=== PATIENT | female | born 1990 | race African-American/Black ===

== ENCOUNTER 2025-05-19 08:54 | Emergency (ER) | payer OTHER ==
[~2025-05-19] VITALS: Ht 165.1 cm; Wt 63.0 kg
[2025-05-19 09:00] VITALS: BP 133/92; PULSE 85; RESP 16; TEMP 98.2; O2SAT 99
[2025-05-19] MEDS ORDERED: NS 1000ML 1,000 ML ONE (09:24)
[2025-05-19] MEDS ORDERED: BENTYL IM ONE (09:24)
[2025-05-19] MEDS: NS 1000ML 1,000 ML IV ONE (09:32)
[2025-05-19] MEDS: BENTYL IM STA (09:32)
[2025-05-19 09:35] LABS: BASOPHIL % 0.2 % (0.1-1.2); EOSINOPHIL # 0.1 10^3/uL (0.0-0.2); EOSINOPHIL % 1.5 % (0.0-5.0); HEMATOCRIT(ML) 36.8 % (36.0-46.0); HEMOGLOBIN 11.7 g/dL (12.0-15.0); LYMPHOCYTES # 2.11 10^3/uL1 (1.0-4.8); MEAN CORP HGB 29.3 pg (26-34); MEAN CORP HGB CONCENTRATION 31.8 g/dL (33-36.5); MONOCYTES # 0.6 10^3/uL (0.3-0.8); MONOCYTES % 7.4 % (5.0-12.0); NEUTROPHIL # 5.3 10^3/uL (1.8-7.7); NEUTROPHILS % 64.8 % (41.0-85.0); PLATELET COUNT 265 10^3/uL (150-400); WHITE BLOOD CELL 8.1 10^3/uL (4.5-11.0)
[2025-05-19 09:41] LABS: LEUKOCYTE ESTERASE ,URINE 3+ (NEGATIVE); NITRATE,URINE POSITIVE (NEGATIVE); UROBILINOGEN,URINE 0.2 E.U./dL (0.2)
[2025-05-19 09:43] LABS: APPEARANCE,URINE TURBID; UA COLOR YELLOW
[2025-05-19 09:45] LABS: +ADD MANUAL DIFF(NO CHRG) NO
[2025-05-19 09:49] LABS: UAMPH METHAMP(SCRN) NEGATIVE (co1000ng/mL); UR MDMA (ECSTASY) SCRN NEGATIVE (c/o300ng/mL); UR METHADONE SCRN NEGATIVE (c/o300ng/mL); UR PHENCYCLIDINE (PCP) SCRN NEGATIVE (c/o 25ng/mL); UR TETRAHYDROCANNABINOL SCRN NEGATIVE (c/o 50ng/mL)
[2025-05-19 09:52] LABS: CARBON DIOXIDE 28.7 mmol/L (20.0-32); POTASSIUM 3.5 mmol/L (3.6-5.2); UR OPIATE SCRN PRESUMPTIVE POSITIVE (c/o300ng/mL)
[2025-05-19 09:53] LABS: ALBUMIN(ML) 3.4 g/dL (3.4-5.0); ALBUMIN/GLOBULIN RATIO 1.307; ANION GAP 10.8; BUN/CREATININE RATIO 12.82 (10.0-20.0); CALCIUM 8.6 mg/dL (8.4-10.5); CREATININE SERUM 0.78 mg/dL (0.59-1.40); EST GFR, NON-AA 85.6 (>/=60)
[2025-05-19] MEDS ORDERED: OFIRMEV 100 ML IV ONE (09:55)
[2025-05-19] MEDS ORDERED: ROCEPHIN ONE (09:55)
[2025-05-19] MEDS ORDERED: NS 100ML 100 ML IV ONE (09:55)
[2025-05-19] MEDS: ROCEPHIN 2 GM-D5W BAG 50 ML IV SCH (09:59)
[2025-05-19] MEDS: OFIRMEV 100 ML IV ONE (10:01)
[2025-05-19 10:09] VITALS: BP 114/46; PULSE 78; RESP 16; O2SAT 98
[2025-05-26 15:14] LABS: OPIATES Negative (Cutoff=200)
== END 2025-05-19 10:14 | disposition home or self-care (01) ==
LOC: ER 08:54
DX: N39.0 Urinary tract infection, site not specified (principal); M54.9 Dorsalgia, unspecified; Z88.6 Allergy status to analgesic agent
CPT/HCPCS: 96361; 96375; 96374; 96372; 99284; 87086; 80346; 80053; 85025; 80361; 36415; 83605; 80307; 81001; 81025; 83690; 85651; 87077; 87186; J7030; J0500; J0131; J0696